=== PATIENT | female | born 1940 | race Caucasian/White ===

== ENCOUNTER → 2017-06-18 | Outpatient (CLI) | payer BC ==
[~2017-06-18] MED LIST: ASPIRIN325; CLARITIN10 MG; COLACE 100 MG100 MG; LEVOTHYROXIN0.112 M1 PO; MECLIZINE HCL12.5 MG; MECLIZINE HCL12.5 MG PO; MIRALAX255 GM; OXYCONTIN10 M1; OXYIR 5 MG CAPSU5 M1 PO; PEPCID AC20 M1; SYNTHROID; XARELTO10 MG; ZPAK PO
== END ==
LOC: M.RAD 12:50
DX: M47.894 Other spondylosis, thoracic region (principal); M40.294 Other kyphosis, thoracic region

== ENCOUNTER → 2018-02-06 | Outpatient (CLI) | payer BC ==
--- NOTE | 2018-02-08 15:07 | PATH ---
[address] [address] PATHOLOGY RPT PROCEDURE Name: PAVITHRA CORONADO Room: [facility] NANCY Bishop#: [id number] Admission: 02/06/18 Date of : 44 Discharge: Report #: [id number] Path Case #: [id number] LCA Accession Number: [id number] . 01 Material submitted: . LEFT BREAST 6:00, 4 CM FN . 01 Clinical history: . 0.58 x 0.54 x 0.56 cm mass . 02 Diagnosis: Left breast, 6:00, 4 cm from nipple, image-guided core biopsies: - INFILTRATING DUCTAL ADENOCARCINOMA, LOW GRADE (I OF III), SPANNING 5 MM IN ASSOCIATION WITH CALCIFICATIONS. SEE COMMENT. (DANIEL:abel; 02/07/2018) QMS/02/07/2018 . 02 Comment: Specimen type: Image-guided core biopsies Tumor site: 6:00, 4 cm from nipple Tumor quantitation: Approximately 75% of submitted tissues Histologic type: Ductal adenocarcinoma Histologic grade: I of III Tubules, nuclei and mitoses: 1, 2, 1 LVSI: Not identified Microcalcifications: Identified in tumor and non-neoplastic breast Markers: Breast tumor profile pending Block: A3 . . Low-grade ductal carcinoma in situ, solid and cribriform types are seen focally within the confines of the infiltrating tumor. A ductal papilloma is noted immediately adjacent as well. Breast tumor profile studies are pending and will be the subject of an addendum report. Lucia Landon, ([facility] Breast Navigator) notified of preliminary findings at approximately 15:55 on 02/07/2018. Reviewed with Dr. Collette Herzog, who agrees with the diagnosis. . (DANIEL:abel; 02/07/2018) . 02 Electronically signed: . Kannan Baig MD, Pathologist NPI- [id number] . 01 Gross description: . Received in formalin labeled "Pavithra Coronado, left breast biopsy," and additionally labeled on the requisition as "6:00, 4 cm from nipple," are multiple needle cores of yellow-white fibrofatty tissue measuring 2.5 x 3.2 [place] [address] PATHOLOGY RPT PROCEDURE Name: PAVITHRA CORONADO Room: [facility]#: [id number] Admission: 02/06/18 Date of : 44 Discharge: Report #: [id number] Path Case #: [id number] x 0.8 cm in aggregate dimensions. The tissue is submitted in its entirety in cassettes A1 through A3. The cold ischemic time is 5 minutes. The total formalin fixation time is 8 hours and 5 minutes. (TSD; 02/06/2018) TOB/TOB . 02 Pathologist provided ICD-10: C50.912, D05.12 . 02 CPT . 025637 Specimen Comment: A courtesy copy of this report has been sent to Specimen Comment: [phone], , . Specimen Comment: Report sent to ,DR PIERRE / DR LANDON Specimen Comment: A duplicate report has been generated due to demographic updates. Performed at: [address], [place] [id number] MD Srinivasan Paige MD Phone: [phone] Performed at: 02 [facility] [address], [place], [place] [id number] MD Kannan Baig MD Phone: [phone]
== END | disposition home or self-care (01) ==
LOC: M.ULTRA 09:26
DX: C50.912 Malignant neoplasm of unspecified site of left female breast (principal); Z88.0 Allergy status to penicillin; Z88.2 Allergy status to sulfonamides; Z91.041 Radiographic dye allergy status; Z88.8 Allergy status to other drugs, medicaments and biological substances; Z79.899 Other long term (current) drug therapy

== ENCOUNTER → 2018-02-19 | Outpatient (CLI) | payer BC ==
[~2018-02-19] MED LIST changes: +SYNTHROID75 MCG PO
[2018-02-19 11:06] LABS: CREATININE 0.8 mg/dL (0.6-1.3)
== END ==
LOC: M.LAB 10:08 → M.MRI 11:30
PROVIDERS: Surgery
DX: C50.312 Malignant neoplasm of lower-inner quadrant of left female breast (principal)

== ENCOUNTER → 2018-02-22 | Outpatient (CLI) | payer BC ==
--- NOTE | ~2018-02-22 | CON ---
[address] [address] CONSULTATION Name: LARISSA CORONADO JEMIMA Room: [facility]#: [id number] Admission: 02/22/18 Attend Phys: Armen Kelly MD Discharge: Date of : 44 Report #: [id number] THIS REPORT FOR: //name// CC: Juju Daniels MD DATE OF SERVICE: 02/22/2018 RADIATION ONCOLOGY CONSULTATION NOTE [facility] phone is [phone]. REFERRING PHYSICIANS: 1. Jodi Francis DO. 2. Xena De M.D. 3. Juju Brown DO. PRIMARY SITE AND HISTOPATHOLOGY: The patient is a 77-year-old woman with right now an estrogen-receptor positive infiltrating ductal carcinoma of the left breast and she just had a biopsy. HISTORY OF PRESENT ILLNESS: The patient is a 77-year-old woman who had a routine mammogram at [facility] on 01/10/2018 and that revealed a 0.7 cm mass in the mid-to-deep inferior left breast. The patient denied having any palpable masses in either the right breast or left breast. She denied having any nipple discharge. She went on to undergo ultrasound of the left breast on 01/10/2018, which revealed a solid lesion at the 6 o'clock position of the left breast. The patient went on to undergo a left diagnostic mammogram on 02/06/2018, which targeted the mass at the 6 o'clock position. She underwent a biopsy at that time and the image-guided core biopsy revealed an infiltrating ductal carcinoma, which was grade 1 out of 3 at the 6 o'clock position of the left breast, which spanned about 0.5 cm with calcifications. It was 94.59 estrogen-receptor positive, 87.23% progesterone-receptor positive and HER2/Tatiana was equivocal and FISH analysis was pending. She went ahead and saw her medical oncologist, Dr. De, on 02/21/2018 to discuss treatment options and she was also referred to a genetic counselor for genetic testing and the patient indicates she is also being set up for lumpectomy on 03/01/2018. PAST MEDICAL HISTORY AND PAST SURGICAL HISTORY: Includes cataract repair in both the right eye and left eye, hearing loss and bronchitis as a child. She is hypothyroid after being treated for Graves' disease. MEDICATIONS: Her medications are 75 mcg of levothyroxine per day, [place] [address] CONSULTATION Name: LARISSA CORONADO Room: [facility]#: [id number] Admission: 02/22/18 Attend Phys: Armen Kelly MD Discharge: Date of : 44 Report #: [id number] and various supplements. ALLERGIES: PENICILLIN, SULFA, NOVOCAIN, IODINE AND CODEINE. THERE LOOKS LIKE MORE OF AN ADVERSE REACTION TO CODEINE, WHICH CAUSES NAUSEA AND VOMITING. PAST OBSTETRIC AND GYNECOLOGIC HISTORY: Menarche at age 14, menopause in her 40s. She is 2, para 2. FAMILY HISTORY: Mother had breast cancer, sister had breast cancer and maternal aunts had cancer. 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 She lives with her . Ethanol, she does not drink alcohol-containing drinks. Cigarettes, she quit smoking 35-40 years ago; she smoked less than a pack per day for about 20 years. REVIEW OF SYSTEMS: GENERAL: She denied having fevers or chills. SKIN: She denied having color changes or itching. LYMPH NODES: She denied having any enlarged or painful glands in the neck. ENDOCRINE: She denied having hot or cold intolerance. HEMATOLOGIC AND IMMUNOLOGIC: The patient denied having recent bleeding. MUSCULOSKELETAL: She denied having painful swollen joints. HEAD AND NECK: She denied having any headaches or migraines. RESPIRATION: She denied having shortness of breath. CARDIOVASCULAR: She denied having palpitations. GASTROINTESTINAL: She denied having nausea or vomiting. NEUROLOGIC: She denied having any focal weakness. PHYSICAL EXAMINATION: With my nurse, Jennifer Vann, present: VITAL SIGNS: Height 5 feet 3-1/2 inches, weight 176.6 pounds. Blood pressure 158/60, pulse 64, respirations 20 and oxygen saturation 99% on room air. LYMPH NODES: She had no palpable cervical, supraclavicular or axillary lymphadenopathy. PSYCHIATRIC: The patient was alert, oriented, no acute distress. HEAD, EYES, EARS, NOSE AND THROAT EXAMINATION: Pupils were equal, round and react to light and accommodation. Extraocular movements intact. Mouth had no visible suspicious lesions. HEART: Had a regular rate and rhythm, without murmur. LUNGS: Clear to auscultation. BREASTS: Right breast had no suspicious palpable masses. Left breast had no suspicious palpable masses. ABDOMEN: Nontender. Spleen was not palpable. Liver was at the costal margin. EXTREMITIES: Without clubbing, cyanosis or edema. NEUROLOGIC: Cranial nerves 2-12 were intact. Sensation was intact. The patient had 5/5 strength [place] [address] CONSULTATION Name: LARISSA CORONADO Room: [facility]#: [id number] Admission: 02/22/18 Attend Phys: Armen Kelly MD Discharge: Date of : 44 Report #: [id number] ASSESSMENT AND PLAN: The patient has right now a T1c Nx Mx invasive ductal carcinoma of the left breast that is estrogen-receptor positive, HER2/Tatiana was equivocal. The patient is right now proceeding with lumpectomy and going towards breast conservation therapy. I told the patient that if her lymph nodes are not involved with cancer, then she would have the option of just receiving antiestrogen therapy alone versus antiestrogen therapy and radiation therapy. This is based on the article entitled "lumpectomy post-tamoxifen with or without radiation" in women, age 70 years or older with early breast cancer, long-term followup of CALGB 93/43; and in that protocol, the patients over the age of 70 with lymph node negative and estrogen receptor positive, clinical stage I breast cancers are randomized to tamoxifen versus tamoxifen and radiation therapy. There is no overall survival difference at 10 years followup. The local control rate was 98% at 10 years, when they received radiation therapy and tamoxifen versus 90% when they just received tamoxifen alone. So the risks, benefits and logistics of radiation therapy were discussed with the patient in detail. She does realize she will be offered radiation therapy if her lymph nodes are involved with cancer. She realizes that the radiation therapy is optional if they are not involved with cancer right now. She is leaning more towards just doing the antiestrogen therapy if her lymph nodes were not involved with cancer. She was asked to return for followup appointment after her operation when her pathology is available to finalize her adjuvant treatment plan. Thank you very much for this consult. By: 1147 1255Armen Kelly MD /mildred
== END ==
LOC: M.RTH 04:25
DX: C50.912 Malignant neoplasm of unspecified site of left female breast (principal); E03.9 Hypothyroidism, unspecified; Z17.0 Estrogen receptor positive status [ER+]

== ENCOUNTER → 2018-03-01 | Day surgery (SDC) | payer BC ==
[~2018-03-01] MED LIST changes: +ULTRAM 50MG TAB50 MG PO
[2018-03-01 10:37] LABS: HEMATOCRIT 40.7 % (37.0-47.0); HEMOGLOBIN 13.6 gm/dL (12.0-15.0); MCH 31.3 pg (26.0-34.0); MCHC 33.6 g/dL (28.0-37.0); MCV 93.3 fL (80.0-100.0); MPV 8.6 fl. (7.2-11.1); RBC 4.36 mil/uL (4.20-5.00); RDW-CV 13.8 % (10.5-14.5); WBC 4.6 thou/uL (4.0-11.0)
[2018-03-01 10:47] LABS: CALCIUM 8.7 mg/dL (8.5-10.1); CREATININE 0.8 mg/dL (0.6-1.3)
--- NOTE | 2018-03-01 15:01 | EKG ---
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: : 1940 Requested By: Juju Brown Order Number: [id number] Anatoliy MD: Arsalan Paulino Measurements Intervals [place] Rate: 60 P: 59 VT: 174 QRS: -14 QRSD: 103 T: 23 QT: 448 QTc: 448 Interpretive Statements Sinus rhythm Left ventricular hypertrophy Compared to ECG 11/09/2016 11:57:37 No significant changes Electronically Signed On 03-01-2018 15:01:23 INBOUND INGREDIENT LOGISTICS SPECIALIST by Arsalan Paulino [email or web address] <ELECTRONICALLY SIGNED> By: Arsalan Paulino MD, [facility] 03/01/18 1501 1034 33 Arsalan Paulino MD, FACC /EPI
--- NOTE | 2018-03-02 11:12 | OP ---
[address] [address] OPERATIVE REPORT Name: CLIFFLARISSA JEMIMA Room: [facility]#: [id number] Admission: 03/01/18 Attend Phys: Juju Brown DO Discharge: Date of : 44 Report #: [id number] THIS REPORT FOR: //name// CC: Juju Brown Jodi Robersonick DATE OF SERVICE: 03/01/2018 PREOPERATIVE DIAGNOSIS: Left breast cancer. POSTOPERATIVE DIAGNOSIS: Left breast cancer. FINDINGS: Left breast wire localization. SURGEON: Juju Brown DO. COSURGEON: Dr. Antonio Monet. AMMONIUM HYDROXIDE OPERATOR: Edison Ambrocio DO, PGY-2. PROCEDURE PERFORMED: Left breast wire localized lumpectomy with left deep sentinel lymph node dissection. ANESTHESIA: LMA and local. ESTIMATED BLOOD LOSS: 5 mL. DRAINS: None. SPECIMENS: Left breast lumpectomy and left deep sentinel lymph node. COMPLICATIONS: None. CONDITION: Stable. DISPOSITION: PACU to home. HISTORY OF PRESENT ILLNESS: The patient is a very pleasant 77-year-old female who presented to my office after a change in her mammogram. She underwent a left breast radiological-guided biopsy, which did return with findings of a left breast cancer. She was seen by Oncology and Radiation Oncology and upon completion of all consultations, decided to move forward with a lumpectomy and a sentinel lymph node dissection. Risks of surgery were discussed include bleeding, infection, pain, scar formation, deformation of the breast, positive margins requiring further surgery, injury to nerve, artery and vein causing chronic pain, numbness or swelling and risks of general anesthesia. The patient [address] [address] OPERATIVE REPORT Name: LARISSA CORONADO Room: [facility].#: [id number] Admission: 03/01/18 Attend Phys: Juju Brown DO Discharge: Date of : 42 Report #: [id number] understood these risks and elected to proceed. DESCRIPTION OF PROCEDURE: The patient was initially taken to radiology where she underwent a left breast wire localization and injection of nuclear medication in the left breast. She returned to preop where she underwent informed consent. She was taken to the operating room and laid supine on the operating room table. SCDs were placed to bilateral lower extremities. Ancef was given in the perioperative period. General LMA anesthesia was induced by anesthesia without difficulty. The left breast was prepped and draped in standard sterile fashion. Timeout was performed to verify patient and procedure. Tip of the wire was palpated and marked. A 10 mL of 0.5% Marcaine were injected in the area around the wire. Curvilinear incision was created around the wire. Cautery was used for hemostasis. The area of the wire itself was gently grasped using an Allis clamp and was elevated. An appropriately sized lumpectomy specimen was then created around the wire utilizing cautery. Once the specimen was completely freed, it was marked in the superior lateral direction. It was then taken to radiology where it underwent mammography. The radiologist returned a phone call indicating that we had obtained a clip in the specimen. Hemostasis was assured within the cavity. The cavity was then gently packed using a Ray-Ruperto. We then turned our attention to the left axilla. Neoprobe was brought into the field. The area of the nipple was interrogated. We did not have terribly good uptake at the site of the nipple. The highest uptake that we had in this area was approximately 2500. Prior to beginning the procedure, the left breast had been cleansed with alcohol and 5 mL of isosulfan blue dye had been also injected in the periareolar area. The left axilla was interrogated and we had some very low areas of uptake. Supraclavicular and sternal areas were also interrogated with no uptake. An incision was then planned in the axilla. A 10 mL of 0.5% Marcaine were injected in this area. Incision was made with #15 blade. Cautery was used for hemostasis. Small Weitlaner retractor was placed within the wound and gently dissected down through the subcutaneous tissues using cautery until the clavipectoral fascia was identified. Clavipectoral fascia was incised using cautery as well. The pectoralis muscle was gently retracted using an Badge-[place]. Neoprobe was again brought on to the field with the highest uptake that was identified in the axilla was approximately 40. I then very gently dissected down into the depths of the axilla until a trail of blue dye was clearly visualized. The area was traced to a small blue lymph node. Uptake in this area was approximately 68. This area was grasped using an Allis clamp and was gently elevated. The blue node was transected free from the surrounding area using the cautery. This was then handed off as our left sentinel lymph node. No further blue dye was identified and there was no further uptake in the axilla with the Neoprobe. Hemostasis was assured in the axilla. Both wounds were irrigated with 100 mL of normal saline. The left axilla incision was filled with FloSeal. Both wounds were then closed in a layered fashion using deep and superficial stitches of 3-0 Vicryl in inverted interrupted fashion. Skin wounds were closed with running 4-0 Monocryl. A total of 30 mL of 0.5% Marcaine [place] [address] OPERATIVE REPORT Name: LARISSA CORONADO Room: [facility].#: [id number] Admission: 03/01/18 Attend Phys: Juju Brown DO Discharge: Date of : 42 Report #: [id number]. Wounds were then cleansed and covered with Mastisol, Steri-Strips, 4 x 4's, and a Tegaderm. The patient was then allowed to awake from anesthesia, was extubated and transported to the recovery room with no further difficulties. Counts were correct x 2 at the conclusion of the case. <ELECTRONICALLY SIGNED> By: Juju Brown DO 03/02/18 1112 1528 1620Chcarolina Brown DO /nt
== END | disposition home or self-care (01) ==
LOC: M.SUR 07:00
PROVIDERS: Surgery
DX: C50.912 Malignant neoplasm of unspecified site of left female breast (principal); Z88.0 Allergy status to penicillin; Z88.2 Allergy status to sulfonamides; Z88.6 Allergy status to analgesic agent; Z91.041 Radiographic dye allergy status; Z79.899 Other long term (current) drug therapy

== ENCOUNTER → 2019-02-09 | Emergency (ER) | payer BC ==
[~2019-02-09] VITALS: Ht 165.1 cm; Wt 86.2 kg
[~2019-02-09] MED LIST changes: +NORCO 5-325 TA1 EAC1 PO; +ZOFRAN ODT4 MG DISSOLVE
[2019-02-09 10:11] VITALS: BP 178/90
== END ==
LOC: M.ERS 08:52
DX: S76.012A Strain of muscle, fascia and tendon of left hip, initial encounter (principal); S76.011A Strain of muscle, fascia and tendon of right hip, initial encounter; K21.9 Gastro-esophageal reflux disease without esophagitis; Z88.5 Allergy status to narcotic agent; Z88.2 Allergy status to sulfonamides; Z88.0 Allergy status to penicillin; Z88.8 Allergy status to other drugs, medicaments and biological substances; Z90.710 Acquired absence of both cervix and uterus; Z85.3 Personal history of malignant neoplasm of breast; W10.9XXA Fall (on) (from) unspecified stairs and steps, initial encounter; Y93.89 Activity, other specified; Y92.59 Other trade areas as the place of occurrence of the external cause; Y99.8 Other external cause status

== ENCOUNTER → 2019-02-11 | Outpatient (CLI) | payer BC | LOC: M.CT 13:01 | DX: M47.26 Other spondylosis with radiculopathy, lumbar region (principal); M12.88 Other specific arthropathies, not elsewhere classified, other specified site; Z88.8 Allergy status to other drugs, medicaments and biological substances; Z88.2 Allergy status to sulfonamides; W19.XXXA Unspecified fall, initial encounter ==

== ENCOUNTER → 2019-02-21 | Outpatient (CLI) | payer BC | LOC: M.MRI 14:03 → M.CT 14:30 → M.MRI 14:30 | DX: M47.816 Spondylosis without myelopathy or radiculopathy, lumbar region (principal); M51.26 Other intervertebral disc displacement, lumbar region; M51.27 Other intervertebral disc displacement, lumbosacral region; N28.1 Cyst of kidney, acquired; Z88.8 Allergy status to other drugs, medicaments and biological substances; Z88.2 Allergy status to sulfonamides ==

== ENCOUNTER 2019-03-07 21:49 | Inpatient (IN) | payer BC ==
[~2019-03-07] VITALS: Ht 160 cm; Wt 83.9 kg
[2019-03-07 21:51] VITALS: BP 214/89
[2019-03-07] MEDS ORDERED: VITAMIN E1000 UNIT PO (21:59)
[2019-03-07] MEDS ORDERED: FOLBIC RF TABL1 EACH PO (21:59)
[2019-03-07] MEDS ORDERED: FEMARA2.5 MG PO (21:59)
[2019-03-07] MEDS ORDERED: GINKGO60 MG PO (22:00)
[2019-03-07] MEDS ORDERED: FISH OIL 1,0001 EAC9 PO (22:00)
[2019-03-07] MEDS ORDERED: VITAMIN C1000 MG PO (22:00)
[2019-03-07] MEDS ORDERED: BIOTIN5 MG PO (22:01)
[2019-03-07] MEDS ORDERED: CRANBERRY500 M2 PO (22:01)
[2019-03-07] MEDS ORDERED: VITAMIN D325 MC5 PO (22:01)
[2019-03-07] MEDS ORDERED: VENLAFAXINE HCL75 MG PO (22:02)
[2019-03-07 22:25] LABS: ABSOLUTE BASOPHILS 0.1 thou/uL (0.0-0.2); ABSOLUTE EOSINOPHILS 0.2 thou/uL (0.0-0.7); ABSOLUTE LYMPHOCYTES 1.6 thou/uL (0.8-5.3); ABSOLUTE MONOCYTES 0.7 thou/uL (0.0-1.2); ABSOLUTE NEUTROPHILS 3.8 thou/uL (1.6-8.1); BASOPHILS 1.1 %; EOSINOPHILS 3.5 %; HEMATOCRIT 37.3 % (37.0-47.0); HEMOGLOBIN 12.8 gm/dL (12.0-15.0); LYMPHOCYTES 24.7 %; MCH 31.3 pg (26.0-34.0); MCHC 34.2 g/dL (28.0-37.0); MCV 91.6 fL (80.0-100.0); MONOCYTES 10.4 %; MPV 8.1 fl. (7.2-11.1); NUCLEATED RBCS 0 /100WBC; PLATELET COUNT* 191 thou/uL (150-400); POLYS 60.3 %; RBC 4.07 mil/uL (4.20-5.00); RDW-CV 13.4 % (10.5-14.5); WBC 6.3 thou/uL (4.0-11.0)
[2019-03-07 22:34] LABS: CALCIUM 8.9 mg/dL (8.5-10.1); CREATININE 1.1 mg/dL (0.6-1.3); POTASSIUM 4.1 mmol/L (3.5-5.1)
[2019-03-07 22:44] LABS: ALBUMIN 3.7 g/dL (3.4-5.0); MAGNESIUM 2.1 mg/dL (1.8-2.4); TOTAL BILIRUBIN 0.3 mg/dL (<0.1-1.0)
[2019-03-07 23:02] LABS: PROTIME 10.3 Seconds (9.20-11.50)
[2019-03-08] VITALS (13 sets, daily range): BP systolic 120–172; BP diastolic 51–76
[2019-03-08 11:23] LABS: CHOLESTEROL 193 mg/dL (<200); HDL CHOLESTEROL 65 mg/dL (>40); LDL CHOLESTEROL 120 mg/dL (<100); SERUM ASSESSMENT Clear; TRIGLYCERIDE 44 mg/dL (<150); VLDL 9 mg/dL (<40)
[2019-03-09] VITALS: BP 129/61
[2019-03-09 04:00] VITALS: BP 134/58
[2019-03-09 05:00] LABS: HEMOGLOBIN 11.5 gm/dL (12.0-15.0); MCH 31.8 pg (26.0-34.0); MCHC 34.8 g/dL (28.0-37.0); MCV 91.4 fL (80.0-100.0); MPV 8.7 fl. (7.2-11.1); RBC 3.61 mil/uL (4.20-5.00); RDW-CV 13.6 % (10.5-14.5); WBC 8.8 thou/uL (4.0-11.0)
[2019-03-09 05:25] LABS: CALCIUM 8.7 mg/dL (8.5-10.1); CREATININE 0.8 mg/dL (0.6-1.3); POTASSIUM 4.4 mmol/L (3.5-5.1); TOTAL BILIRUBIN 0.3 mg/dL (<0.1-1.0); TROPONIN-I LEVEL 0.09 ng/mL (<0.06)
[2019-03-09 08:00] VITALS: BP 153/63
[2019-03-09] MEDS ORDERED: NITROSTAT0.4 M1 SUBLING (10:45)
[2019-03-09] MEDS ORDERED: EFFIENT10 MG PO (10:46)
[2019-03-09] MEDS ORDERED: LIPITOR 20 MG T20 M1 PO (10:47)
[2019-03-09 10:50] VITALS: BP 153/63
[2019-03-09] MEDS ORDERED: ASA81BEC PO (11:30)
--- NOTE | 2019-03-09 12:56 | CARD ---
[address] [address] CARDIAC CATH REPORT Name: SHAINA CORONADOKINGA CASANOVAA Room: [address] IN [facility]#: [id number] Admission: 03/07/19 Attend Phys: Home brown [place] Discharge: 03/09/19 Date of : 44 Report #: [id number] THIS REPORT FOR: //name// APPROVED REPORT Study performed: 03/08/2019 12:02:52 Patient Details Patient Status: In-Patient Room #: The patient is a 78 year-old female Event Personnel Arsalan Paulino Wood Repatcher, Toshia Amaya Manager Of Warehouse, Kena Aviles RN Monitor, Anastasiya Downey RTR Scrub Procedures Performed Art Access - R femoral artery* Left Heart Cath w/or w/o Coronaries BRUCE Place w/wo Plasty OM 2 Hemostasis w/ Angioseal Indication Unstable angina Risk Factors Hypertension Admission/Lab Medications/Medications given during procedure Aspirin, Platelet Aff. Inhib. Procedure Narrative The patient was brought electively to the Cardiac Catheterization Laboratory and was prepped and draped in a sterile manner. The right femoral was infiltrated with 2% Lidocaine subcutaneous anesthesia. A 6 Fr. Lovely sheath was inserted into the right femoral artery. Coronary angiography was performed using coronary diagnostic catheters. The right coronary system was accessed and visualized with a Diagnostic 6Fr Jr4 catheter. The left coronary system was accessed and visualized with a Diagnostic JL4 6Fr catheter. The left ventricle was accessed and visualized with a Pigtail catheter. Left ventricular/Aortic Valve gradient assessed via catheter pullback. Left ventriculogram was performed in [place] LA CRUZ projection. Pre-demployment femoral angiogram was performed . The patient tolerated the procedure well and there were no complications associated with the procedure. There was no hematoma. Ventriculogram [place] [address] CARDIAC CATH REPORT Name: LARISSA CORONADO Room: [address]#: [id number] Admission: 03/07/19 Attend Phys: Home [place] Discharge: 03/09/19 Date of : 44 Report #: [id number] Intraoperative Conscious Sedation Sedation start time: 12:51 Case end Time: 13:56 Fentanyl 25 mcg Versed 1 mg Fluoro Time: 10.4 minutes Dose: 1432 mGy Contrast Type and Amount: Visipaque 210 ml Coronary Angiography The patient's coronary anatomy is right dominant. Diagnostic Cath Left Main 0 Percent narrowing LAD 30% proximal and mid LAD narrowing Circumflex 80% stenosis of the second marginal branch of the nondominant circumflex Right Coronary Large dominant vessel with 30% narrowing at the acute margin Left Ventriculography The left ventricle is normal in size with normal contractility. The left ventricular ejection fraction is estimated to be 65%. Left ventricular wall motion abnormalities are not present. There is no mitral insufficiency. Hemodynamics The aortic pressure is 185/70 mmHg with a mean of 116 mmHg. The left ventricular pressure is 185/-2 mmHg with a mean of mmHg. The left ventricular end diastolic pressure is 8 mmHg. There was no gradient across the aortic valve upon pullback. PCI Technique Lesion Anticoagulation was achieved with Angiomax. Patient was preloaded with Angiomax IV 13 ml. Percutaneous coronary intervention was performed on the second obtuse marginal branch segment. The lesion stenosis prior to intervention was 80% with ANSELMO 3 flow. A 6F XB LAD 3.5 Guide Catheter was used to engage the ostium. A IG: ProwaterFlex 180CM Interventional Guidewire was used to cross the lesion. BALLOON DILATION A Balloon catheter Mini Trek RX 1.5 X 8 was inserted and inflated up to 18.00atm for 15seconds. Additional Inflation: 18.00atm for 12seconds. [place] [address] CARDIAC CATH REPORT Name: SHAINA CORONADOKINGA ONOFRE Room: [address]#: [id number] Admission: 03/07/19 Attend Phys: Home [place] Discharge: 03/09/19 Date of : 44 Report #: [id number] STENT DEPLOYMENT A drug-eluting stent Tioga RX Stent 2.0X12mm was inserted and inflated up to 8.00atm for 13seconds. Additional Inflation: 9.00atm for 14seconds. Final angiography reveals 0 % stenosis with ANSELMO 3 flow. Conclusion #1 significant coronary artery disease characterized by the following: A 30% proximal and mid LAD narrowing B 80% stenosis of the second marginal branch of the prominent though nondominant circumflex C dominant right coronary artery with 30% narrowing at the acute margin #2 normal left ventricular systolic function, estimate ejection fraction being 65% #3 moderately severe systemic systolic hypertension with normal left ventricular end-diastolic pressure at rest #4 successful percutaneous coronary intervention with deployment of drug-eluting stent at the site of 80% second marginal stenosis with 0% residual narrowing ANSELMO-3 flow to the distal vessel Recommendations Cardiac Rehabilitation Referral Cardiac Risk Reduction Program Medications Administered Aspirin (any) Prasugrel Diagnostic Cath Approved by: Arsalan Paulino MD Date/Time: 03/09/2019 12:54:23 <ELECTRONICALLY SIGNED> By: Arsalan Paulino MD, FACC 03/09/19 1256 1256 1256Arsalan Paulino MD, FACC /INF
--- NOTE | 2019-03-10 08:31 | EKG ---
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 : 1940 Requested By: Blaise Garsia Order Number: [id number] MD: Nael Zepeda Measurements Intervals [place] Rate: 74 P: 65 CO: 167 QRS: -24 QRSD: 100 T: 42 QT: 383 QTc: 425 Interpretive Statements Sinus rhythm Probable left atrial enlargement Abnormal R-wave progression, late transition Left ventricular hypertrophy Compared to ECG 03/01/2018 10:34:14 No significant changes Electronically Signed On 03-10-2019 8:31:26 IDENTIFIER HORSE by Nael Zpeeda [email or web address] <ELECTRONICALLY SIGNED> By: Nael Zepeda MD, FACC 03/10/19 0831 215 52 Nael Zepeda MD, [facility] /EPI
--- NOTE | 2019-03-12 10:30 | CON ---
[address] [address] CONSULTATION Name: LARISSA CORONADO Room: [address] M.R.#: [id number] Admission: 03/07/19 Attend Phys: Home [place] Discharge: 03/09/19 Date of : 44 Report #: [id number] THIS REPORT FOR: //name// CC: Home [place] DATE OF SERVICE: 03/08/2019 CARDIOLOGY CONSULTATION LOCATION: The patient is in 229. Seen and dictated by Dr. Paulino on 03/08/2019. HISTORY OF PRESENT ILLNESS: The patient is a pleasant 78-year-old female who developed a heavy pressure-like sensation in her chest yesterday just after playing cards. There was radiation up into the neck with achiness in the left upper arm as well. She has had prior episodes of aching in the arm, but no central chest pain. This remitted in the ER after 1 sublingual nitroglycerin tablet within 2-3 minutes. She has had no recurrent pain after that episode that remitted in the ER. There is no history of antecedent myocardial infarction. Risk factors for coronary artery disease include prior cigarette smoking history, but she stopped remotely, and family history of heart disease in her sister. She does not have a history of hypercholesterolemia and denies hypertension, though she was hypertensive in the ER. PAST MEDICAL HISTORY: Remarkable for gastroesophageal reflux disease, but she notes that this discomfort is completely distinct from the pain she noted yesterday. PAST SURGICAL HISTORY: She has undergone prior surgeries including hysterectomy, back surgery, tonsillectomy, and fracture of pelvis. FAMILY HISTORY: Remarkable for mother having breast cancer. Father, Parkinson's. There is no family history of sudden . SOCIAL HISTORY: She is and retired. She drinks rarely but no longer smokes. REVIEW OF SYSTEMS: CENTRAL NERVOUS SYSTEM: She denies [place] or [place] [address] CONSULTATION Name: LARISSA CORONADO Room: [address]#: [id number] Admission: 03/07/19 Attend Phys: Home [place] Discharge: 03/09/19 Date of : 44 Report #: [id number] GENERAL: There has been no weight change or fever. RESPIRATORY: She notes occasional cough, which is nonproductive. CARDIAC: She had chest discomfort on admission. No history of antecedent myocardial infarction. No history of valvular heart disease. ENDOCRINE: She denies diabetes, but notes treated hypothyroidism. GENITOURINARY: She denies dysuria or hematuria. HEMATOLOGIC AND LYMPHATIC: She denies anemia or bleeding dyscrasia. There is a history of breast cancer. ALLERGIC AND IMMUNOLOGIC: She denies seasonal allergies, but notes MEDICATION ALLERGIES TO CODEINE, IODINE, PENICILLIN, SULFA, AND PROCAINE. PSYCHIATRIC: She denies depression or chronic anxiety. MUSCULOSKELETAL: She denies arthritic complaints or connective tissue syndrome. SKIN: She denies rashes or hives. EYES: She wears glasses. ENT: She notes mild presbycusis and does have dentures. PHYSICAL EXAMINATION: GENERAL: Demonstrates an elderly female in no acute distress. VITAL SIGNS: Blood pressure 140/70, pulse rate is 76, respirations are 18 per minute. NECK: Jugular venous pressure is normal. Carotids are 1-2+. There is no thyromegaly. HEENT: No scleral icterus. CHEST: Clear. CARDIAC: Reveals normal first and second heart sounds with a soft early systolic murmur without rubs or gallops. ABDOMEN: Mildly obese and nontender. EXTREMITIES: Intact femoral, pedal and radial pulses. There are no deformity or arthritic changes. No petechiae or ecchymoses are noted. LABORATORY DATA: Unremarkable with normal renal function parameters and CBC. Troponin is less than 0.06. EKG is reviewed and demonstrates sinus rhythm, voltage criteria for left ventricular hypertrophy and no acute ischemic changes. IMPRESSION: 1. Chest pressure, radiating up into the neck and left arm yesterday, relieved by nitroglycerin after a prolonged bout suggestive of angina at rest. 2. Hypertension in the ER. 3. Remote cigarette smoking. 4. History of breast cancer. RECOMMENDATIONS: Given the clinical description and response to nitrates, I suspect myocardial ischemia as etiology. I would recommend proceeding with cardiac catheterization to define current coronary anatomy and prospects [place] [address] CONSULTATION Name: LARISSA CORONADO Room: [address] .R.#: [id number] Admission: 03/07/19 Attend Phys: Home brown [place] Discharge: 03/09/19 Date of : 44 Report #: [id number] This has been discussed with the patient and family. <ELECTRONICALLY SIGNED> By: Arsalan Paulino MD, FACC 03/12/19 1030 1033 [id number] Paulino MD, FACAshley /nt
== END 2019-03-09 11:57 | disposition home or self-care (01) | DRG 247 ==
LOC: M.ERS 21:49 → M.TBA-ER 23:26 → M.2W 23:26
PROVIDERS: Emergency Medicine Emergency Medical Services; Internal Medicine; ADMIT Family Medicine
PROC: 4A023N7 Measurement of Cardiac Sampling and Pressure, Left Heart, Percutaneous Approach (ICD-10-PCS; principal; 2019-03-08)
PROC: B211YZZ Fluoroscopy of Multiple Coronary Arteries using Other Contrast (ICD-10-PCS; principal; 2019-03-08)
PROC: 027034Z Dilation of Coronary Artery, One Artery with Drug-eluting Intraluminal Device, Percutaneous Approach (ICD-10-PCS; principal; 2019-03-08)
PROC: B215YZZ Fluoroscopy of Left Heart using Other Contrast (ICD-10-PCS; principal; 2019-03-08)
PROC: B41FYZZ Fluoroscopy of Right Lower Extremity Arteries using Other Contrast (ICD-10-PCS; 2019-03-08)
DX: I25.10 Atherosclerotic heart disease of native coronary artery without angina pectoris (principal); K21.9 Gastro-esophageal reflux disease without esophagitis; E89.0 Postprocedural hypothyroidism; Z90.710 Acquired absence of both cervix and uterus; Z85.3 Personal history of malignant neoplasm of breast; Z88.0 Allergy status to penicillin; Z88.2 Allergy status to sulfonamides; Z88.8 Allergy status to other drugs, medicaments and biological substances; Z88.6 Allergy status to analgesic agent; Z91.041 Radiographic dye allergy status; Z87.891 Personal history of nicotine dependence; Z87.81 Personal history of (healed) traumatic fracture; Z80.3 Family history of malignant neoplasm of breast; Z82.0 Family history of epilepsy and other diseases of the nervous system; Z79.899 Other long term (current) drug therapy

== ENCOUNTER → 2020-04-27 | Outpatient (CLI) | payer BC ==
[~2020-04-27] MED LIST changes: +ASA81BEC PO; +BIOTIN5 MG PO; +CRANBERRY500 M2 PO; +DYMISTA NASAL S23 GM NASAL; +EFFIENT10 MG PO; +FEMARA2.5 MG PO; +FISH OIL 1,0001 EAC9 PO; +FOLBIC RF TABL1 EACH PO; +GINKGO60 MG PO; +LIPITOR 20 MG T20 M1 PO; +LOPRESSOR50 MG PO; +NITROSTAT0.4 M1 SUBLING; +VENLAFAXINE HCL75 MG PO; +VITAMIN C1000 MG PO; +VITAMIN D325 MC5 PO; +VITAMIN E1000 UNIT PO
--- NOTE | 2020-04-27 19:25 | CARDNUC ---
[place] [address] CARDIAC NUCLEAR IMAGING REPORT Name: LARISSA CORONADO Room: [facility]#: [id number] Admission: 04/27/20 Attend Phys: Elisabeth Ahmadi Discharge: Date of : 44 Date of Service: 04/27/201923 Report #: [id number] THIS REPORT FOR: cc: Jodi Francis Linda J. DO Liston, Michael J. MD [facility] ~ APPROVED REPORT Study performed: 04/27/2020 13:58:59 Exam: Nuclear Stress Test Indication: Dyspnea, CAD s/p PCI. Patient Location: Out-Patient Stress Tech: Flory Frye Stress Nurse: Tamela Cheng Tech:PATEL Lee Ht: 5 ft 4 in Wt: 181 lbs BSA: 1.88 m2 BMI: 31.06 Medical History Medical History: Angina, CAD s/p stent, HTN, Hyperlipidemia, Obesity , SOB, past smoker, acquired hypothyroidism, obesity, right TKA, left knee bone on bone/pain, unsteady gait. Medications: Atorvastatin, NTG, Prasugrel, Metoprolol Tartrate, [place] 3 Fatty Acids. Allergies: Codeine, Ciprocinonide, Doxycycline, Iodine, Novocain, PNC, Sulfacetamide/Sulfur. Cardiac Risk Factors: Age, HTN, Hyperlipidemia, SOB, Past Smoker, Obesity. Previous Cardiac Procedures: PCI Pretest Chest Pain Characteristics: No chest pain Exercise History: Indeterminate Physical Disabilities: left knee pain/bone on bone, right knee TKA, unsteady gait. Meds Held (24 hrs): Metoprolol, Prasugrel, NTG. Stress Test Details Stress Test: Pharmacologic stress testing performed using 0.4 mg of regadenoson per 5 mL given IV over 10 seconds. Reason for pharmacologic stress test: left knee pain/bone on bone, right knee TKA, unsteady gait.. HR Resting HR: 63 bpm Max Heart Rate (APMHR): 142 [place] [address] CARDIAC NUCLEAR IMAGING REPORT Name: LARISSA CORONADO Room: [facility]#: [id number] Admission: 04/27/20 Attend Phys: Elisabeth Ahmadi Discharge: Date of : 44 Date of Service: 04/27/20 192 Report #: [id number] Max HR Achieved: 109 bpm Target HR (85% APMHR): 120 bpm % of APMHR: 76 Recovery HR: 84 bpm BP Resting BP: 206/93 mmHg Max BP: 135/70 mmHg ECG Resting ECG: Sinus Rhythm Stress ECG: Sinus Tachycardia ST Change: None Arrhythmia: None Recovery ECG: Sinus Rhythm Recovery ST Change: None Recovery Arrhythmia: None Clinical Reason for Termination: Completed protocol Stress Symptoms: Nausea, dizziness, head tightness, sinus headache. Exercise duration: 00 min 00 sec Exercise capacity: 1.00 METs The patient tolerated Lexiscan infusion without significant cardiac symptoms. Nurse Comments A 80 year old female presented for a sitting Lexiscan r/t CAD s/p PCI, HTN, dyspnea. Test well tolerated. Recovery unremarkable. Patient was stable and stated she felt good when escorted to Nuclear Medicine for imaging. Stress ECG Conclusion The baseline twelve-lead EKG shows sinus rhythm without significant ST segment or T wave abnormality. EKGs obtained during and post Lexiscan infusion show sinus rhythm and sinus tachycardia with no significant ST segment or T wave changes when compared to baseline. There were no stress-induced arrhythmias. NM EXAM: Myocardial Perfusion REST/STRESS Imaging Protocol: Rest Tc-99m/Stress Tc-99m 1 day Resting Data Rest SPECT myocardial perfusion imaging was performed in supine position 30 minutes following the intravenous injection of 10.6 mCi of Tc-99m [place] [address] CARDIAC NUCLEAR IMAGING REPORT Name: LARISSA CORONADO [id number] Admission: 04/27/20 Attend Phys: Elisabeth Ahmadi Discharge: Date of : 44 Date of Service: 04/27/20 192 Report #: [id number] Time of rest injection: 1245 Date: 04/27/2020 The images were gated to evaluate regional wall motion and calculate left ventricular ejection fraction. Administration Route: IV Administration Site: Right AC Pharmacologic Stress Pharmacologic stress test was performed by injecting Regadenoson 0.4 mg IV push followed by the intravenous injection of 33.7 mCi of Tc-99m Sestamibi. Time of stress injection: 1425 Date: 04/27/2020 Administration Route: IV Administration Site: Right AC Gated Stress SPECT was performed 40 minutes after stress injection. The images were gated to evaluate regional wall motion and calculate left ventricular ejection fraction. Prone imaging was performed. Study Quality Study: Good Artifact: No artifact Study Data At rest, the left ventricular ejection fraction was 68%.. Post stress, the left ventricular ejection was 72%.. TID = 0.92. Perfusion Perfusion images obtained at rest and post Lexiscan stress show uniform uptake of the radioisotope throughout the myocardium. There was no defect to suggest infarct or ischemia. Wall Motion Normal left ventricular wall motion. Nuclear Conclusion ECG Findings: negative for ischemia Clinical Findings: negative for ischemia Nuclear Findings: negative for ischemia Exercise Capacity: not assessed Left Ventricular Function: normal Risk Study: low Perfusion images show no defect to suggest infarct or ischemia. Left ventricular systolic function appears normal on gated studies. This [place] [address] CARDIAC NUCLEAR IMAGING REPORT Name: LARISSA CORONADO Room: [facility]#: [id number] Admission: 04/27/20 Attend Phys: Elisabeth Ahmadi Discharge: Date of : 44 Date of Service: 04/27/20 192 Report #: [id number] <Conclusion> The baseline twelve-lead EKG shows sinus rhythm without significant ST segment or T wave abnormality. EKGs obtained during and post Lexiscan infusion show sinus rhythm and sinus tachycardia with no significant ST segment or T wave changes when compared to baseline. There were no stress-induced arrhythmias. <ELECTRONICALLY SIGNED> By: Collin Kramer MD, FACC 04/27/201923 23 23 Collin Kramer MD, FACC /INF
== END ==
LOC: M.NUC 10-21 15:57
PROVIDERS: ATTEND Internal Medicine
DX: I25.10 Atherosclerotic heart disease of native coronary artery without angina pectoris (principal); Z95.5 Presence of coronary angioplasty implant and graft

== ENCOUNTER 2020-11-12 12:16 | Emergency (ER) | payer BC ==
[~2020-11-12] VITALS: Ht 160 cm; Wt 81.7 kg
[~2020-11-12 12:16] MED LIST changes: +DOXYCYCLINE 10100 MG PO; +LETROZOLE2.5 MG PO; +PLAVIX 75 MG TA75 MG PO
[2020-11-12] MEDS ORDERED: ASA81BEC PO (12:29)
[2020-11-12 12:38] LABS: HEMATOCRIT 45.3 % (37.0-47.0); HEMOGLOBIN 15.2 gm/dL (12.0-15.0); MCH 31.2 pg (26.0-34.0); MCHC 33.7 g/dL (28.0-37.0); MCV 92.7 fL (80.0-100.0); MPV 8.6 fl. (7.2-11.1); RBC 4.89 mil/uL (4.20-5.00); RDW-CV 13.5 % (10.5-14.5); WBC 5.3 thou/uL (4.0-11.0)
[2020-11-12 12:43] LABS: CALCIUM 8.9 mg/dL (8.5-10.1); CREATININE 0.8 mg/dL (0.6-1.3); POTASSIUM 4.3 mmol/L (3.5-5.1)
[2020-11-12 12:53] LABS: ALBUMIN 4.4 g/dL (3.4-5.0); TOTAL BILIRUBIN 0.6 mg/dL (<0.1-1.0); TOTAL PROTEIN 7.7 g/dL (6.4-8.2)
[2020-11-12] MEDS ORDERED: NORCO5 PO ×2 (13:38→14:24)
[2020-11-12] MEDS ORDERED: ONDANSETRON HCL4 M2 PO (13:38)
[2020-11-12] MEDS ORDERED: IBUPROFEN 600600 M1 PO (13:39)
[2020-11-12 14:54] VITALS: BP 213/70
== END 2020-11-12 14:54 | disposition home or self-care (01) ==
LOC: M.ERS 12:16
PROVIDERS: Physician Assistant
DX: S42.011A Anterior displaced fracture of sternal end of right clavicle, initial encounter for closed fracture (principal); R07.81 Pleurodynia; K21.9 Gastro-esophageal reflux disease without esophagitis; I25.2 Old myocardial infarction; Z90.89 Acquired absence of other organs; Z90.711 Acquired absence of uterus with remaining cervical stump; Z96.651 Presence of right artificial knee joint; Z79.899 Other long term (current) drug therapy; Z79.82 Long term (current) use of aspirin; Z88.5 Allergy status to narcotic agent; Z91.041 Radiographic dye allergy status; Z88.0 Allergy status to penicillin; Z88.4 Allergy status to anesthetic agent; Z88.2 Allergy status to sulfonamides; V89.2XXA Person injured in unspecified motor-vehicle accident, traffic, initial encounter; Y93.89 Activity, other specified; Y92.488 Other paved roadways as the place of occurrence of the external cause; Y99.8 Other external cause status